=== PATIENT | male | born 1970 | race African-American/Black ===

== ENCOUNTER 2016-07-14 03:18 | Emergency (ER) | payer SELFPAY ==
[~2016-07-14] VITALS: Ht 177.8 cm; Wt 86.0 kg
[2016-07-14 03:27] VITALS: Ht 177.8 cm; Wt 86.0 kg
--- NOTE | 2016-07-14 05:08 | ERD ---
ER Documentation Chief Complaint Date/Time DATE: 07/14/16 TIME: 05:02 Chief Complaint right ankle pain x 3 days, also c/o back/flank pain HPI 45-year-old homeless male presents with chief complaint of right ankle pain 3 days. States that he believes the ankle pain was caused by "high frequency lights" that were installed in the neighborhood where he sleeps. He denies any trauma, fever, chills, and loss in range of motion. Pain is currently rated 5 out of 10 in severity. No aggravating or alleviating factors. States that he has a history of speed use, last use was 3 days ago. ROS All systems reviewed and are negative except as per history of present illness. Medications Home Meds Active Scripts Albuterol Sulfate* (Ventolin HFA*) 18 Gm Hfa.aer.ad, 2 PUFF INHALATION Q4H, #1 INHALER Prov:Estrellita Malin PA-C 07/14/16 Ibuprofen* (Motrin*) 600 Mg Tab, 600 MG PO Q6, #30 TAB Prov:Estrellita Malin PA-C 07/14/16 Sulfamethoxazole/Trimethoprim* (Bactrim Ds* Tablet) 1 Each Tablet, 1 TAB PO BID for 5 Days, TAB Prov:Estrellita Malin PA-C 07/14/16 Cephalexin* (Keflex*) 500 Mg Capsule, 500 MG PO QID for 7 Days, CAP Prov:Estrellita Malin-Steve 07/14/16 Allergies Allergies: Coded Allergies: No Known Drug Allergies (Verified Allergy, Unknown, 07/14/16) PMhx/Soc Medical and Surgical Hx: pt denies Medical Hx, pt denies Surgical Hx Hx Alcohol Use: Yes (quit 07/12/16) Hx Substance Use: Yes (speed quit 07/12/16) Hx Tobacco Use: Yes (quit 07/12/16) Smoking Status: Former smoker Physical Exam Vitals Vital Signs Date Time Temp Pulse Resp B/P Pulse Ox O2 Delivery O2 Flow Rate FiO2 07/14/16 03:27 98.8 94 20 140/89 98 Physical Exam GENERAL: Non-toxic. No apparent signs of distress. Anxious. Disheveled. HEENT: Atraumatic. Bilateral eyes are PERRL EOM intact. Normal conjunctiva, no injection. No eyelid or lower eyelid swelling noted. Ears: Normal tympanic membrane, no erythema or bulging. No ear canal swelling. No ear discharge. Nose : no nasal discharge. Throat: Oropharynx normal. Tongue pink and moist. No tonsillar swelling or tonsillar exudates. No lymphadenopathy. LUNGS: Clear to auscultation. No accessory muscle use. No wheezing, no crackles. No signs or symptoms of respiratory distress. HEART: Regular rate and rhythm. No murmurs, clicks, rubs or gallops. ABDOMEN: Soft, nontender and nondistended. Bowel sounds positive. No rebound or guarding. No gross peritoneal signs. No Jin or McBurney point tenderness. No gross masses. BACK: No midline tenderness, no costovertebral tenderness. EXTREMITIES: No peripheral cyanosis or edema. No focal pain or notable trauma. Full range of motion. Good capillary refill. 2+ dorsalis pedis pulses bilaterally. NEURO: The patient moves all 4 extremities with 5/5 strength. Cranial nerves are grossly intact. Normal mental status for age. Good muscle tone. SKIN: Erythema and mild edema over right foot and right ankle, nonpurulent and no area of fluctuance. Good skin turgor. Procedures/MDM Patient presented with complaint of right ankle pain 3 days, much of his history does not make sense as he stated that the injury was likely caused by "high-frequency lights" there were installed in the neighborhood where he sleeps. Patient is disheveled and states that he is homeless. Has history of drug use, last use of speed was 3 days ago. On examination however there was mild erythema and edema of the right ankle which was most consistent with nonpurulent cellulitis. There is no area of fluctuance. Patient is full range of motion in bilateral feet and ankles, 2+ dorsalis pedis pulse. Good capillary refill. He denies any trauma. I explained to the patient that I will be treating him for cellulitis with Keflex and MRSA, since patient has increased risk of infection since he is homeless. At this time low suspicion for abscess, septic joint, fracture, dislocation, and allergic reaction. Good hygiene techniques discussed with the patient to prevent future infection. Drug cessation discussed with patient for at least 3 minutes, health risks associated with drugs including speed was described in detail. In addition patient states that he has ran out of his prescription of albuterol , currently denies shortness of breath. On examination his lungs are clear to auscultation bilaterally. He has no wheezing or stridor. Appears to be no acute distress. At this time low suspicion for status asthmaticus, TB, pneumonia, and pneumothorax. Patient stable for discharge and outpatient management. Advised to follow-up with PCP or community clinic in 1-2 days. List of community clinics provided. Departure Diagnosis: Primary Impression: Ankle pain Laterality: right Chronicity: acute Qualified Code: M25.571 - Acute right ankle pain Additional Impression: Cellulitis Site of cellulitis: extremity Site of cellulitis of extremity: lower extremity Laterality: right Qualified Code: L03.115 - Cellulitis of right lower extremity Condition: Good Estrellita Malin PA-C July 14, 2016 05:08
[2016-07-14] MEDS ORDERED: ALBU18HF INHALATION (05:10)
[2016-07-14] MEDS ORDERED: SULF1TAB31 PO ×2 (05:10→12:25)
[2016-07-14] MEDS ORDERED: CEPH-443 PO (05:10)
[2016-07-14] MEDS ORDERED: IBUP-1542 PO ×2 (05:10→12:25)
[2016-07-14] MEDS ORDERED: CEPH500C PO (12:25)
[2016-07-14] MEDS ORDERED: QUET100T PO (12:25)
== END 2016-07-14 05:21 | disposition home or self-care (01) ==
LOC: FTE 03:18
DX: M25.571 Pain in right ankle and joints of right foot (principal); L03.115 Cellulitis of right lower limb; Z79.84 Long term (current) use of oral hypoglycemic drugs
CPT/HCPCS: 99284

== ENCOUNTER 2016-07-14 10:20 | Emergency (ER) | payer SELFPAY ==
[~2016-07-14] VITALS: Ht 180.3 cm; Wt 87.0 kg
[~2016-07-14 10:20] MED LIST: ALBU18HF INHALATION; CEPH-443 PO; IBUP-1542 PO; SULF1TAB31 PO
[2016-07-14 10:37] VITALS: Ht 180.3 cm; Wt 87.0 kg
[2016-07-14] MEDS ORDERED: QUET100T PO (12:25)
[2016-07-14] MEDS ORDERED: IBUP-1542 PO (12:25)
[2016-07-14] MEDS ORDERED: SULF1TAB31 PO (12:25)
[2016-07-14] MEDS ORDERED: CEPH500C PO (12:25)
[2016-07-14] MEDS ORDERED: TRIMETHOPRIM/SULFAMETHOX (DS) TAB PO ONE (12:30)
[2016-07-14] MEDS ORDERED: QUETIAPINE 100 MG TAB PO ONE (12:30)
[2016-07-14] MEDS ORDERED: CEPHALEXIN 500 MG CAP PO ONE (12:30)
[2016-07-14 13:07] VITALS: BP 113/65; PULSE 72; RESP 19; TEMP 97.9
--- NOTE | 2016-07-14 16:24 | ERD ---
ER Documentation Chief Complaint Date/Time DATE: 07/14/16 TIME: 16:23 Chief Complaint RT ANKLE PAIN , REDNESS , HEARING VOICES HPI 45-year-old man here requesting cervical prescription refill. He denies suicidal homicidal ideation. He was recently diagnosed with right lower extremity cellulitis and given a prescription for cephalexin and Bactrim which she has been unable to fill because of financial issues. He was given his initial doses at the emergency department he was seen earlier. He has had no fevers or chills, no difficulty ambulating, no complaints of chest pain or shortness of breath. ROS All systems reviewed and are negative except as per history of present illness. Medications Home Meds Active Scripts Ibuprofen* (Ibuprofen*) 600 Mg Tablet, 600 MG PO Q8 for PAIN AND/OR INFLAMMATION , #30 TAB Prov:BEATRIZ JOHN MD 07/14/16 Cephalexin* (Cephalexin*) 500 Mg Capsule, 500 MG PO Q8 for 7 Days, #28 CAP Prov:BEATRIZ JOHN MD 07/14/16 Sulfamethoxazole/Trimethoprim* (Bactrim Ds* Tablet) 1 Each Tablet, 1 TAB PO BID , #14 TAB Prov:BEATRIZ JOHN MD 07/14/16 Quetiapine Fumarate* (Seroquel*) 100 Mg Tablet, 100 MG PO BID, #20 TAB Prov:BEATRIZ JOHN MD 07/14/16 Albuterol Sulfate* (Ventolin HFA*) 18 Gm Hfa.aer.ad, 2 PUFF INHALATION Q4H, #1 INHALER Prov:Estrellita Malin PA-C 07/14/16 Ibuprofen* (Motrin*) 600 Mg Tab, 600 MG PO Q6, #30 TAB Prov:Estrellita Malin PA-C 07/14/16 Sulfamethoxazole/Trimethoprim* (Bactrim Ds* Tablet) 1 Each Tablet, 1 TAB PO BID for 5 Days, TAB Prov:Estrellita Malin PA-C 07/14/16 Cephalexin* (Keflex*) 500 Mg Capsule, 500 MG PO QID for 7 Days, CAP Prov:Estrellita Malin PA-C 07/14/16 Allergies Allergies: Coded Allergies: No Known Drug Allergies (Verified Allergy, Unknown, 07/14/16) PMhx/Soc Psychiatric illness Medical and Surgical Hx: pt denies Medical Hx, pt denies Surgical Hx Hx Psychiatric Problems: Yes Hx Alcohol Use: Yes (quit 07/12/16) Hx Substance Use: Yes (speed quit 07/12/16) Hx Tobacco Use: Yes (quit 07/12/16) Smoking Status: Former smoker FmHx Family History: No diabetes Physical Exam Vitals Vital Signs Date Time Temp Pulse Resp B/P Pulse Ox O2 Delivery O2 Flow Rate FiO2 07/14/16 13:07 97.9 72 19 113/65 100 Room Air 07/14/16 10:37 98.1 97 18 162/67 98 Physical Exam GENERAL: Well-developed, well-nourished, well-hydrated, in no apparent distress , looks nontoxic in appearance HEENT: Moist mucous membranes, pink conjunctiva, no cervical spine tenderness or step-off deformities, no goiter, no jaundice or icterus, extraocular movements intact without pain. No submandibular induration, and no pharyngeal erythema NEURO: Alert and oriented 3, cranial nerves II through XII intact bilaterally, pupils equal round reactive to light, no focal deficits or facial asymmetry, sensation intact distally Strength 5/5 in upper and lower extremities bilaterally CARDIAC: Regular rate and rhythm, no murmurs rubs or gallops LUNGS: Clear bilaterally no wheezing crackles or stridor ABDOMEN: Soft nontender, no guarding, no rigidity, no rebound, no psoas sign no obturator sign. Normoactive bowel sounds SKIN: Warm and dry to touch, positive soft tissue erythema to the right lateral lower leg, no ecchymosis, no target lesions, and without ulcers EXTREMITIES: Mild soft tissue erythema to the right lateral lower leg without ulcers or pustules. Calves are bilaterally symmetrical, no Homans sign, no popliteal cord sign. Distal pulses equal and bilateral PSYCH: Normal affect without agitation or irritability Results 24 hrs Current Medications Medications (Trade) Dose Ordered Sig/Jorge Luis Route PRN Reason Start Time Stop Time Status Last Admin Dose Admin Cephalexin (Keflex) 500 mg ONCE ONCE PO 07/14/16 12:30 07/14/16 12:31 DC 07/14/16 12:23 Quetiapine Fumarate (Seroquel) 100 mg ONCE ONCE PO 07/14/16 12:30 07/14/16 12:31 DC 07/14/16 12:23 Trimethoprim/ Sulfamethoxazole (Bactrim (Ds)) 1 tab ONCE ONCE PO 07/14/16 12:30 07/14/16 12:31 DC 07/14/16 12:58 Procedures/MDM I administered 200 mg of quetiapine p.o. as well as cephalexin and Bactrim here in the emergency department. I also obtained a clinical social worker evaluation and attempted to give him his complete antibiotic regimen from the emergency department although after speaking to her pharmacy and administration we were unable to do that. I did refer him to nearby low cost and free clinics as well as to nearby [facility] to follow-up with. Differential diagnoses considered, included but not limited to acute coronary syndrome, pulmonary embolism, aortic dissection, abdominal aortic aneurysm, sepsis, stroke, meningitis, encephalitis, pneumonia, appendicitis, cholecystitis , bowel obstruction, pyelonephritis, nephrolithiasis, cystitis, as well as metabolic, hematologic, and electrolyte abnormalities. As well as abscess, cellulitis, fractures, and dislocations. Patient feels much better at this time, and vital signs are normal, symptoms have improved. I did give strict instructions to return to the ED if symptoms continue or worsen, patient will otherwise follow-up with primary care physician. Patient understood instructions and agreed to plan. Departure Diagnosis: Primary Impression: Psychological disorder Additional Impression: Cellulitis Site of cellulitis: extremity Site of cellulitis of extremity: lower extremity Laterality: right Qualified Code: L03.115 - Cellulitis of right lower extremity Condition: Good Patient Instructions: Cellulitis, Anxiety Reaction BEATRIZ JOHN MD July 14, 2016 16:24
== END 2016-07-14 13:08 | disposition home or self-care (01) ==
LOC: E/R 10:20
DX: F99 Mental disorder, not otherwise specified (principal); L03.115 Cellulitis of right lower limb; Z87.891 Personal history of nicotine dependence
CPT/HCPCS: 99284